=== PATIENT | female | born 1970 | race Caucasian/White ===

== ENCOUNTER → 2017-06-21 | Outpatient (CLI) | payer OTHER, BC ==
[~2017-06-21] MED LIST: ACET500; CHOL10002 PO; Celexa40 MG; DONE5; GLATIRAMER 20 MG; HYDACE5 PO; LORA1 PO; MULVITA; PARO10; REBIF SQ; RXHYDACE PO; ZINC50TA2; [UNRECOGNIZED DRUG - OTHER]
[2017-06-23 13:13] LABS: HPV Genotype 16 Not Detected (NOTDET); HPV Genotype 18 Not Detected (NOTDET); HPV High Risk Other Not Detected (NOTDET)
== END | disposition home or self-care (01) ==
LOC: OLS 14:42
PROVIDERS: Obstetrics & Gynecology Gynecology
DX: Z12.4 Encounter for screening for malignant neoplasm of cervix (principal)
CPT/HCPCS: 87624; G0123

== ENCOUNTER 2018-06-06 06:31 | Day surgery (SDC) | payer OTHER, BC ==
[~2018-06-06] VITALS: Ht 172.7 cm; Wt 74.8 kg
[~2018-06-06 06:31] MED LIST changes: +Adult Low Dose81 MG PO; +B-121000 MCG PO; +METPHE5 PO; +TECFIDERA240 MG PO; +Vitamin D2000 UNIT PO
--- NOTE | 2018-06-06 08:43 | NUR ---
06/06/18 0843 [address] IRRIGATED SCOPE WITH SIMETHICONE.
[2018-06-08] MEDS ORDERED: Citalopram HBr40 MG PO (12:43)
== END 2018-06-06 09:22 | disposition home or self-care (01) ==
LOC: ORSCSDS 06:31
PROVIDERS: Internal Medicine Gastroenterology
PROC: 0DBK8ZX Excision of Ascending Colon, Via Natural or Artificial Opening Endoscopic, Diagnostic (ICD-10-PCS; principal; 2018-06-06 08:00)
PROC: 0DBH8ZX Excision of Cecum, Via Natural or Artificial Opening Endoscopic, Diagnostic (ICD-10-PCS; principal; 2018-06-06 08:00)
DX: Z12.11 Encounter for screening for malignant neoplasm of colon (principal); D12.0 Benign neoplasm of cecum; D12.2 Benign neoplasm of ascending colon; K64.8 Other hemorrhoids; G35 Multiple sclerosis; Z79.899 Other long term (current) drug therapy; Z87.891 Personal history of nicotine dependence; Z79.82 Long term (current) use of aspirin
CPT/HCPCS: 88305; J0330; J1980; J2405; J7120

== ENCOUNTER 2018-06-20 12:53 | Day surgery (SDC) | payer OTHER, BC ==
[~2018-06-20] VITALS: Ht 172.7 cm; Wt 77.5 kg
[~2018-06-20 12:53] MED LIST changes: +Citalopram HBr40 MG PO
--- NOTE | 2018-06-20 15:39 | NUR ---
06/20/18 1539 Alexandra Peña AT 1454 BLADDER SCAN PERFORMED 153ML VOLUME OBTAINED, PT STATES DOESN'T FEEL THE NEED TO VOID. GIVEN CRANBERRY JUICE AND DERRICK CRACKERS, CASSIDY CALLED TO HER BEDSIDE
== END 2018-06-20 16:58 | disposition home or self-care (01) ==
LOC: ORSCSDS 12:53
PROVIDERS: Obstetrics & Gynecology Gynecology
PROC: 0TSD0ZZ Reposition Urethra, Open Approach (ICD-10-PCS; principal; 2018-06-20 14:00)
DX: N39.3 Stress incontinence (female) (male) (principal); G47.33 Obstructive sleep apnea (adult) (pediatric); G35 Multiple sclerosis; F41.8 Other specified anxiety disorders; Z79.82 Long term (current) use of aspirin; Z79.899 Other long term (current) drug therapy
CPT/HCPCS: C1771; J1100; J2405; J3010; J7120

== ENCOUNTER → 2018-07-13 | Outpatient (CLI) | payer OTHER, BC ==
[2018-07-17 14:08] LABS: HPV 16 Negative (Negative); HPV 18 Negative (Negative); HPV OTHER HR TYPES Negative (Negative)
== END | disposition home or self-care (01) ==
LOC: LAB SHORT 18:43 → LAB 18:43
PROVIDERS: Obstetrics & Gynecology Gynecology
DX: Z12.4 Encounter for screening for malignant neoplasm of cervix (principal)
CPT/HCPCS: 87624; G0123

== ENCOUNTER → 2018-08-17 | Outpatient (CLI) | payer OTHER, BC | END | disposition home or self-care (01) | LOC: LAB SHORT 12:43 → PLD 12:43 | DX: R89.7 Abnormal histological findings in specimens from other organs, systems and tissues (principal) | CPT/HCPCS: 88305 ==

== ENCOUNTER → 2021-10-26 | Outpatient (CLI) | payer OTHER, BC ==
[2021-10-27 11:31] LABS: Candida species (DNA Probe) Positive (NEGATIVE); G. vaginalis (DNA Probe) Positive (NEGATIVE); T. vaginalis (DNA Probe) Negative (NEGATIVE)
[2021-10-28 08:10] LABS: HPV 16 Negative (Negative); HPV 18 Negative (Negative); HPV OTHER HR TYPES Negative (Negative)
== END | disposition home or self-care (01) ==
LOC: LAB 15:59 → LAB SHORT 15:59
PROVIDERS: Advanced Practice Midwife
DX: Z01.419 Encounter for gynecological examination (general) (routine) without abnormal findings (principal); B37.3 Candidiasis of vulva and vagina
CPT/HCPCS: 87480; 87510; 87624; 87660; G0123

== ENCOUNTER → 2021-12-03 | Outpatient (CLI) | payer OTHER, BC | END | disposition home or self-care (01) | LOC: LAB SHORT 13:22 → PLD 13:22 | DX: N72 Inflammatory disease of cervix uteri (principal); N87.0 Mild cervical dysplasia | CPT/HCPCS: 88305 ==

== ENCOUNTER 2025-04-12 06:26 | Day surgery (SDC) | payer OTHER ==
[2025-04-12] VITALS (17 sets, daily range): BP systolic 117–163; BP diastolic 58–84
[~2025-04-12] VITALS: Ht 172.7 cm; Wt 68.1 kg
[~2025-04-12 06:26] MED LIST changes: +BUPROPION XL150 M1 PO; +DESVENLAFAXINE50 MG PO
--- NOTE | 2025-04-12 07:32 | NUR ---
04/12/25 07Cheryl Betts CONFIRMED AND REVIEWED H&P, MEDCICATIONS, ALLERGIES, MEDICAL HISTORY, RESPIRATORY HISTORY, VITAL SIGNS, 3-LEAD EKG, CONSENTS, AND PHYSICIAN ORDERS. PATIENT CONFIRMS NPO STATUS AND AGREES WITH SCHEDULED PROCEDURE. MONITOR INTACT WITH CONTINUOUS PULSE OXIMETRY, CAPNOGRAPHY, 3-LEAD EKG, INTERMITTENT BP. SUPPLEMENTAL O2 TO BE TITRATED THROUGHOUT PROCEDURE TO MAINTAIN O2 SATURATION ABOVE 90%. PATIENT DETERMINED TO BE ASA APPROPRIATE FOR PROPOFOL SEDATION PRIOR TO START OF PROCEDURE BY DR. LIGHT.
--- NOTE | 2025-04-12 08:15 | NUR ---
Discharge instructions reviewed with patient. Patient verbalizes understanding. Copy given to patient to take home. Discharged via wheelchair to private car for ride home.
--- NOTE | 2025-04-12 08:20 | NUR ---
History, Chart, Medications and Allergies reviewed before start of procedure. Patient confirms NPO status and agrees with scheduled surgery. Pre-Op teaching done. Pt verbalizes understanding. Patient states colon prep results clear. Lungs clear T/O to Auscultation.
== END 2025-04-12 08:15 | disposition home or self-care (01) ==
LOC: ORSCMMR 06:26 → ORD 07:30 → ORSCMMR 08:15
PROVIDERS: Internal Medicine Gastroenterology
PROC: 0DBN8ZX Excision of Sigmoid Colon, Via Natural or Artificial Opening Endoscopic, Diagnostic (ICD-10-PCS; principal; 2025-04-12 07:30)
DX: Z12.11 Encounter for screening for malignant neoplasm of colon (principal); K63.5 Polyp of colon; Z86.0101 Personal history of adenomatous and serrated colon polyps; G35.D Multiple sclerosis, unspecified; F32.A Depression, unspecified; Z79.899 Other long term (current) drug therapy
CPT/HCPCS: 88305; J2704; J7120